=== PATIENT | male | born 1940 | race African-American/Black ===

== ENCOUNTER 2016-11-24 02:53 | Inpatient (IN) | payer OTHER, MEDICAID ==
[~2016-11-24] VITALS: Ht 180.3 cm; Wt 103.0 kg
[2016-11-24 03:35] LABS: Basophils # (auto) 0.1 uL; Basophils % (auto) 0.7 % (0.0-2.0); Eosinophils # (auto) 0.5 uL; Eosinophils % (auto) 4.9 % (0.0-7.0); Hematocrit 38.7 % (41.0-53.0); Hemoglobin 12.4 g/dL (13.5-17.5); Lymphocytes # (auto) 1.8 uL; Lymphocytes % (auto) 18.5 % (10.0-50.0); Mean Corpuscular Hemoglobin 29.1 pg (28.0-32.0); Mean Corpuscular Volume 90.9 fL (80.0-100.0); Mean Platelet Volume 8.1 fL (7.4-10.4); Monocytes # (auto) 0.7 uL; Monocytes % (auto) 7.2 % (0.0-12.0); Neutrophils # (auto) 6.6 uL; Neutrophils % (auto) 68.7 % (37.0-80.0); Platelet Count (auto) 247 10^3/uL (140-450); Red Cell Distribution Width 14.6 % (11.6-16.0); White Blood Cell 9.6 10^3/uL (4.4-10.8)
[2016-11-24 03:46] LABS: INR 1.15 (0.9-1.15); Prothrombin Time 11.8 sec (9.37-12.3)
[2016-11-24 03:47] LABS: Albumin 3.4 g/dL (3.4-5.0); BUN/Creatinine Ratio 10.5; Calcium 8.3 mg/dL (8.5-10.1); Magnesium 2.2 mg/dL (1.6-2.6)
[2016-11-24 03:50] LABS: Bilirubin, Total 0.4 mg/dL (0.2-1.0); Total Protein 7.3 g/dL (6.4-8.2)
[2016-11-24 03:55] LABS: B-Type Natriuretic Peptide 87.72 pg/mL (0-100)
[2016-11-24] MEDS ORDERED: IPRATROPIUM BROM 0.5 MG/2.5ML INH SOL NEB ONE ×2 (04:00→05:30)
[2016-11-24] MEDS ORDERED: ALBUTEROL SULF 2.5 MG/0.5ML(0.5%) NEB SOLN NEB ONE ×2 (04:00→05:30)
[2016-11-24 04:04] LABS: Temperature: 23.4 C (20.0-25.0)
[2016-11-24] MEDS ORDERED: FUROSEMIDE 20 MG/2 ML VIAL IV ONE (04:30)
[2016-11-24 05:08] LABS: Urine RBC None Seen /hpf (0 - 3)
[2016-11-24 05:20] LABS: Urine Bilirubin Negative (Negative); Urine Blood Negative /uL (Negative); Urine Color Yellow (Yellow); Urine Glucose Normal (Normal); Urine Ketone Negative (Negative); Urine Nitrite Negative (Negative); Urine Squamous Epithelial Cell FEW /hpf (<5); Urine Urobilinogen Normal (Negative)
[2016-11-24] MEDS ORDERED: methylPREDNISolone SOD SUCC 125 MG/2 ML VL IV ONE (05:30)
[2016-11-24] MEDS ORDERED: LISI10TA6 PO (06:14)
[2016-11-24] MEDS ORDERED: CLOP75TA28 PO (06:14)
[2016-11-24] MEDS ORDERED: ATOR20TA50 PO (06:14)
[2016-11-24] MEDS ORDERED: CARV6.2551 PO (06:14)
[2016-11-24] MEDS ORDERED: METF-312 PO (06:14)
[2016-11-24] MEDS ORDERED: MORPHINE SULF INJ 2 MG/ML SYRINGE 1ML IV PRN ×2 (08:45→09:30)
[2016-11-24] MEDS ORDERED: ALBUTEROL SULF 2.5 MG/0.5ML(0.5%) NEB SOLN NEB PRN (08:45)
[2016-11-24] MEDS ORDERED: DEXTROSE (50%) 50ML SYRG IV PRN (08:45)
[2016-11-24] MEDS ORDERED: HYDROcodone-ACET 5/325MG TAB PO PRN (08:45)
[2016-11-24] MEDS ORDERED: LORazepam 0.5 MG TAB PO PRN (08:45)
[2016-11-24] MEDS ORDERED: ACETAMINOPHEN 500 MG TAB PO PRN (08:45)
[2016-11-24] MEDS ORDERED: PROMETHAZINE HCL 25 MG/ML 1ML IV PRN (08:45)
[2016-11-24] MEDS ORDERED: LACTULOSE 20Gm/30ML SOLN PO PRN (08:45)
[2016-11-24] MEDS ORDERED: TEMAZEPAM 15 MG CAP PO PRN (08:45)
[2016-11-24] MEDS ORDERED: NITROGLYCERIN 0.4 MG SL TAB SL PRN (09:30)
[2016-11-24] MEDS: OSELTAMIVIR 75 MG CAP PO SCH ×2 (10:11→21:14)
[2016-11-24] MEDS: ENOXAPARIN SOD 40 MG/0.4 ML SYRINGE SC SCH (10:11)
[2016-11-24] MEDS: LEVOFLOXACIN 500MG 100 ML IV SCH (10:15)
[2016-11-24] MEDS ORDERED: CLOPIDOGREL BISULFATE 75 MG TAB PO ONE (10:45)
[2016-11-24] MEDS: CARVEDILOL 3.125 MG TAB PO SCH ×2 (11:11→21:30)
[2016-11-24] MEDS: InsuLIN REG 1unit/0.01ml Soln (100units/ml) SC SCH ×3 (11:22→22:00)
[2016-11-24] MEDS: ACCU-CHEK COMFORT CURVE STRIP VI SCH ×3 (11:26→22:09)
[2016-11-24] MEDS ORDERED: methylPREDNISolone SOD SUCC 40 MG/ML VL IV SCH (12:00)
[2016-11-24] MEDS: ALBUTEROL SULF 2.5 MG/0.5ML(0.5%) NEB SOLN NEB SCH ×2 (12:20→20:01)
[2016-11-24] MEDS: IPRATROPIUM BROM 0.5 MG/2.5ML INH SOL NEB SCH ×2 (12:20→20:01)
[2016-11-24] MEDS ORDERED: methylPREDNISolone SOD SUCC 40 MG/ML VL ONE (13:26)
[2016-11-24 14:00] VITALS: BP 132/74
[2016-11-24 16:39] VITALS: BP 148/84
[2016-11-24] MEDS ORDERED: PATIENTS OWN MEDICATION (Carvedilol 6.25 MG) PO SCH ×2 (22:00)
[2016-11-24 22:16] VITALS: BP 136/74
[2016-11-24] MEDS: methylPREDNISolone SOD SUCC 40 MG/ML VL IV SCH (23:09)
[2016-11-24 23:38] VITALS: BP 136/74
[2016-11-25 05:02] VITALS: BP 121/59
[2016-11-25 06:25] LABS: Basophils # (auto) 0 uL; Eosinophils # (auto) 0 uL; Hematocrit 37.5 % (41.0-53.0); Hemoglobin 12.3 g/dL (13.5-17.5); Lymphocytes # (auto) 1.4 uL; Mean Corpuscular Hemoglobin 30.1 pg (28.0-32.0); Mean Corpuscular Hgb Conc. 32.9 g/dL (32.0-36.0); Mean Corpuscular Volume 91.5 fL (80.0-100.0); Mean Platelet Volume 8.5 fL (7.4-10.4); Monocytes # (auto) 0.7 uL; Monocytes % (auto) 3.7 % (0.0-12.0); Neutrophils # (auto) 17.7 uL; Neutrophils % (auto) 89.3 % (37.0-80.0); Platelet Count (auto) 238 10^3/uL (140-450); Red Cell Distribution Width 14.7 % (11.6-16.0); White Blood Cell 19.8 10^3/uL (4.4-10.8)
[2016-11-25] MEDS: InsuLIN REG 1unit/0.01ml Soln (100units/ml) SC SCH ×4 (06:38→22:00)
[2016-11-25] MEDS: ACCU-CHEK COMFORT CURVE STRIP VI SCH ×4 (06:38→21:40)
[2016-11-25 07:20] LABS: Albumin 3.1 g/dL (3.4-5.0); BUN/Creatinine Ratio 17.2; Bilirubin, Total 0.4 mg/dL (0.2-1.0); Potassium 4.1 mmol/L (3.5-5.1); Total Protein 6.8 g/dL (6.4-8.2)
[2016-11-25 08:36] VITALS: BP 128/68
[2016-11-25] MEDS: ENOXAPARIN SOD 40 MG/0.4 ML SYRINGE SC SCH (09:51)
[2016-11-25] MEDS: OSELTAMIVIR 75 MG CAP PO SCH ×2 (09:51→21:19)
[2016-11-25] MEDS: ATORVASTATIN 20 MG TAB PO SCH (09:51)
[2016-11-25] MEDS: ASPirin 81 mg TAB PO SCH (09:52)
[2016-11-25] MEDS: CLOPIDOGREL BISULFATE 75 MG TAB PO SCH (09:52)
[2016-11-25] MEDS: NITROGLYCERIN 0.2MG/HR TOPICAL PATCH TD SCH (09:53)
[2016-11-25] MEDS: LEVOFLOXACIN 500MG 100 ML IV SCH (09:53)
[2016-11-25] MEDS: LISINOPRIL 10 MG TAB PO SCH (09:53)
[2016-11-25] MEDS: CARVEDILOL 3.125 MG TAB PO SCH ×2 (09:53→21:40)
[2016-11-25 12:40] VITALS: BP 142/73
[2016-11-25] MEDS: methylPREDNISolone SOD SUCC 40 MG/ML VL IV SCH ×3 (13:30→23:10)
[2016-11-25] MEDS: ALBUTEROL SULF 2.5 MG/0.5ML(0.5%) NEB SOLN NEB SCH ×2 (15:39→19:25)
[2016-11-25] MEDS: IPRATROPIUM BROM 0.5 MG/2.5ML INH SOL NEB SCH ×2 (15:39→19:25)
[2016-11-25 17:25] VITALS: BP 136/73
[2016-11-25] MEDS: FAMOTIDINE 20 MG TAB PO SCH (21:19)
[2016-11-25 21:58] VITALS: BP 125/61
[2016-11-25] MEDS: BUDESONIDE (INHALATION) 0.5 MG/2 ML NEB NEB SCH (22:23)
[2016-11-26 04:39] VITALS: BP 122/59
[2016-11-26] MEDS: ACCU-CHEK COMFORT CURVE STRIP VI SCH ×2 (05:43→11:52)
[2016-11-26] MEDS: InsuLIN REG 1unit/0.01ml Soln (100units/ml) SC SCH ×2 (05:43→11:30)
[2016-11-26] MEDS: methylPREDNISolone SOD SUCC 40 MG/ML VL IV SCH (05:43)
[2016-11-26] MEDS: IPRATROPIUM BROM 0.5 MG/2.5ML INH SOL NEB SCH ×2 (06:11→10:19)
[2016-11-26] MEDS: ALBUTEROL SULF 2.5 MG/0.5ML(0.5%) NEB SOLN NEB SCH ×2 (06:12→10:19)
[2016-11-26 09:00] VITALS: BP 145/74
[2016-11-26] MEDS: ENOXAPARIN SOD 40 MG/0.4 ML SYRINGE SC SCH (09:34)
[2016-11-26] MEDS: ASPirin 81 mg TAB PO SCH (09:35)
[2016-11-26] MEDS: CLOPIDOGREL BISULFATE 75 MG TAB PO SCH (09:35)
[2016-11-26] MEDS: LISINOPRIL 10 MG TAB PO SCH (09:35)
[2016-11-26] MEDS: FAMOTIDINE 20 MG TAB PO SCH (09:35)
[2016-11-26] MEDS: ATORVASTATIN 20 MG TAB PO SCH (09:35)
[2016-11-26] MEDS: LEVOFLOXACIN 500MG 100 ML IV SCH (09:35)
[2016-11-26] MEDS: CARVEDILOL 3.125 MG TAB PO SCH (09:37)
[2016-11-26] MEDS: OSELTAMIVIR 75 MG CAP PO SCH (09:38)
[2016-11-26] MEDS: NITROGLYCERIN 0.2MG/HR TOPICAL PATCH TD SCH (09:38)
[2016-11-26] MEDS: BUDESONIDE (INHALATION) 0.5 MG/2 ML NEB NEB SCH (10:19)
[2016-11-26 13:00] VITALS: BP 130/72
[2016-11-26 13:26] VITALS: BP 130/72
== END 2016-11-26 15:00 | disposition home or self-care (01) | DRG 189 ==
LOC: ER 02:57 → TELE 02:58 → TELE-E-ADS 10:47 → TELE-EAST 15:24
PROVIDERS: ADMIT Internal Medicine; ATTEND Hospitalist
DX: J96.01 Acute respiratory failure with hypoxia (principal); J44.0 Chronic obstructive pulmonary disease with (acute) lower respiratory infection; J44.1 Chronic obstructive pulmonary disease with (acute) exacerbation; J20.9 Acute bronchitis, unspecified; E11.9 Type 2 diabetes mellitus without complications; I11.0 Hypertensive heart disease with heart failure; I50.9 Heart failure, unspecified; Z87.891 Personal history of nicotine dependence; Z83.3 Family history of diabetes mellitus; Z79.4 Long term (current) use of insulin; Z98.890 Other specified postprocedural states
CPT/HCPCS: 36415; 36600; 71010; 80053; 80061; 81001; 82550; 82805; 82962; 83036; 83735; 83880; 84443; 84484; 85025; 85379; 85610; 85652; 85730; 86141; 87070; 87205; 87400; 93005; 94640; 96374; 96375; G0434; J1815; J1956

== ENCOUNTER 2016-12-15 18:12 | Emergency (ER) | payer OTHER, MEDICAID ==
[~2016-12-15] VITALS: Ht 185.4 cm; Wt 101.2 kg
[~2016-12-15 18:12] MED LIST: ATOR20TA50 PO; CARV6.2551 PO; CLOP75TA28 PO; LISI10TA6 PO; METF-312 PO
[2016-12-15] MEDS ORDERED: ALBUTEROL SULF 2.5 MG/0.5ML(0.5%) NEB SOLN NEB ONE ×2 (18:30→21:00)
[2016-12-15] MEDS ORDERED: IPRATROPIUM BROM 0.5 MG/2.5ML INH SOL NEB ONE (18:30)
[2016-12-15 19:24] LABS: Basophils # (auto) 0.1 uL; Basophils % (auto) 0.8 % (0.0-2.0); Eosinophils # (auto) 0.5 uL; Eosinophils % (auto) 6.8 % (0.0-7.0); Hematocrit 40.3 % (41.0-53.0); Hemoglobin 13.2 g/dL (13.5-17.5); Lymphocytes # (auto) 2.1 uL; Lymphocytes % (auto) 25.5 % (10.0-50.0); Mean Corpuscular Hemoglobin 29.8 pg (28.0-32.0); Mean Corpuscular Hgb Conc. 32.7 g/dL (32.0-36.0); Mean Corpuscular Volume 91.1 fL (80.0-100.0); Mean Platelet Volume 8.9 fL (7.4-10.4); Monocytes # (auto) 0.7 uL; Monocytes % (auto) 8.9 % (0.0-12.0); Neutrophils # (auto) 4.7 uL; Platelet Count (auto) 190 10^3/uL (140-450); Red Cell Distribution Width 16.7 % (11.6-16.0); White Blood Cell 8.1 10^3/uL (4.4-10.8)
[2016-12-15] MEDS ORDERED: LEVOFLOXACIN 750MG 150 ML IV ONE (19:30)
[2016-12-15] MEDS ORDERED: methylPREDNISolone SOD SUCC 125 MG/2 ML VL IV ONE (19:30)
[2016-12-15 19:40] LABS: Albumin 3.5 g/dL (3.4-5.0); Calcium 8.9 mg/dL (8.5-10.1); Magnesium 2.2 mg/dL (1.6-2.6); Potassium 3.7 mmol/L (3.5-5.1)
[2016-12-15 19:41] VITALS: BP 133/84
[2016-12-15 19:43] LABS: Bilirubin, Total 0.9 mg/dL (0.2-1.0); Total Protein 7.2 g/dL (6.4-8.2)
[2016-12-15 19:50] LABS: B-Type Natriuretic Peptide 44.64 pg/mL (0-100)
[2016-12-15 20:40] LABS: Temperature: 20.7 C (20.0-25.0)
== END 2016-12-15 21:45 | disposition home or self-care (01) ==
LOC: ER 18:18
DX: J44.1 Chronic obstructive pulmonary disease with (acute) exacerbation (principal); I11.0 Hypertensive heart disease with heart failure; I50.9 Heart failure, unspecified; E11.9 Type 2 diabetes mellitus without complications; Z87.891 Personal history of nicotine dependence
CPT/HCPCS: 36415; 71010; 80053; 83735; 83880; 84484; 85025; 93005; 94640; 94761; 96365; 96366; 96375; 99285; J1956; J2930; J7030

== ENCOUNTER 2017-03-24 22:17 | Emergency (ER) | payer OTHER, MEDICAID ==
[~2017-03-24] VITALS: Ht 182.9 cm; Wt 99.8 kg
[2017-03-24] MEDS ORDERED: ALBUTEROL SULF 2.5 MG/0.5ML(0.5%) NEB SOLN NEB ONE (22:45)
[2017-03-24] MEDS ORDERED: IPRATROPIUM BROM 0.5 MG/2.5ML INH SOL NEB ONE (22:45)
[2017-03-24] MEDS ORDERED: SODIUM CHLORIDE 0.9% 1,000 ML IV ONE (23:00)
[2017-03-24] MEDS ORDERED: methylPREDNISolone SOD SUCC 125 MG/2 ML VL IV ONE (23:00)
[2017-03-24] MEDS ORDERED: LEVOFLOXACIN 500MG 100 ML IV ONE (23:00)
[2017-03-24 23:30] LABS: Albumin 3.4 g/dL (3.4-5.0); Anion Gap 8 (5-15); Aspartate Aminotransferase 21 U/L (15-37); BUN/Creatinine Ratio 13.5; Blood Urea Nitrogen 13 mg/dL (7-18); Calcium 8.5 mg/dL (8.5-10.1); Carbon Dioxide 27 mmol/L (21-32); Chloride 110 mmol/L (98-107); GFR African American 98 mL/min; GFR Non-African American 81 mL/min; Glucose 111 mg/dL (74-106); Magnesium 2.2 mg/dL (1.6-2.6); Potassium 3.7 mmol/L (3.5-5.1); Sodium 145 mmol/L (136-145)
[2017-03-24 23:35] LABS: Alkaline Phosphatase 101 U/L (45-117); Bilirubin, Total 0.2 mg/dL (0.2-1.0); Total Protein 6.9 g/dL (6.4-8.2)
[2017-03-24 23:49] LABS: Basophils # (auto) 0.1 uL; Eosinophils # (auto) 0.6 uL; Eosinophils % (auto) 6.3 % (0.0-7.0); Hematocrit 38.6 % (41.0-53.0); Hemoglobin 12.6 g/dL (13.5-17.5); Lymphocytes % (auto) 32.2 % (10.0-50.0); Mean Corpuscular Hemoglobin 29.8 pg (28.0-32.0); Mean Corpuscular Hgb Conc. 32.5 g/dL (32.0-36.0); Mean Corpuscular Volume 91.4 fL (80.0-100.0); Mean Platelet Volume 8.5 fL (7.4-10.4); Neutrophils # (auto) 4.8 uL; Neutrophils % (auto) 49.5 % (37.0-80.0); Platelet Count (auto) 220 10^3/uL (140-450); Red Cell Distribution Width 13.4 % (11.6-16.0); White Blood Cell 9.5 10^3/uL (4.4-10.8)
[2017-03-25 00:27] LABS: B-Type Natriuretic Peptide 27.62 pg/mL (0-100)
[2017-03-25 00:37] LABS: Temperature: 22.7 C (20.0-25.0)
[2017-03-25 03:44] LABS: Urine Bilirubin Negative (Negative); Urine Blood Negative /uL (Negative); Urine Color Yellow (Yellow); Urine Glucose Normal (Normal); Urine Ketone Negative (Negative); Urine Mucus FEW (None Seen); Urine Nitrite Negative (Negative); Urine RBC 2 /hpf (0 - 3); Urine Squamous Epithelial Cell FEW /hpf (<5); Urine Urobilinogen Normal (Negative); Urine pH 5.5 (5.0-8.0)
[2017-03-25 04:30] VITALS: BP 151/83
== END 2017-03-25 04:40 | disposition home or self-care (01) ==
LOC: ER 22:21
DX: J44.1 Chronic obstructive pulmonary disease with (acute) exacerbation (principal); J06.9 Acute upper respiratory infection, unspecified; I11.0 Hypertensive heart disease with heart failure; I50.9 Heart failure, unspecified; E11.9 Type 2 diabetes mellitus without complications; Z87.891 Personal history of nicotine dependence
CPT/HCPCS: 36415; 71010; 80053; 81001; 83735; 83880; 84484; 85025; 93005; 94640; 96365; 96375; 99285; J1956; J2930; J7030